=== PATIENT | female | born 1995 | race Two or more races ===

== ENCOUNTER → 2017-09-05 | Outpatient (CLI) | payer OTHER ==
[~2017-09-05] MED LIST: DENIES
--- NOTE | 2017-09-05 21:20 | RADRPT ---
PROCEDURE: Left knee radiographs. CLINICAL INDICATION: Left knee pain. TECHNIQUE: Four views. Weight bearing. Frontal, lateral, oblique, and patellar view. COMPARISON: No prior studies are available for comparison. FINDINGS: There is no fracture or dislocation. The soft tissues are normal. Articular surfaces are intact. There is no lytic or blastic lesion. There is no radiopaque foreign body. IMPRESSION: 1. Normal images of the left knee. RPTAT: QQ .Geronimo Maurer MD, MD Date Time Electronically viewed and signed by .Geronimo Maurer MD, MD on 09/05/2017 21:20 .R/
--- NOTE | 2017-09-05 23:06 | HKNOTE ---
DATE OF SERVICE: 09/05/2017 CHIEF COMPLAINT: Right knee pain. HISTORY OF PRESENT ILLNESS: This is a 22-year-old female who injured her right knee playing soccer 2 years ago. She is complaining of pain in the right knee. She has locking and catching. She yen es any instability. She does not use any braces or assistive devices. She does not take any pain m edication. She has not had any previous treatment. She denies any groin or back pain. She has no other complaints. GAIT: Nonantalgic gait, reciprocal gait pattern. PHYSICAL EXAMINATION: Right knee: Neutral alignment. Tender over the medial joint line. Nontende r over the lateral joint line. There is 0 to 130 degrees range of motion. Stable to varus and valg us stress. Negative [place]arian, negative anterior drawer, negative posterior drawer. Positive [place] y's medially. Motor strength 5/5 hamstrings, quadriceps, tibialis anterior, gastrocsoleus. IMPRESSION: A 22-year-old female with right knee pain. PLAN: We will request authorization for MRI of the right knee. She will follow up to go over the r esults. Dictated By: BREANA OLIVARES/MAIK Conf#: [id number] DID#: [id number]
== END | disposition home or self-care (01) ==
LOC: HKI 10:51
PROVIDERS: ATTEND Orthopaedic Surgery Adult Reconstructive Orthopaedic Surgery
DX: M25.561 Pain in right knee (principal)
CPT/HCPCS: 73564; Z7500; G0463